=== PATIENT | male | born 1970 | race Two or more races ===

== ENCOUNTER 2025-05-18 15:54 | Emergency (ER) | payer MEDICAID ==
[~2025-05-18] VITALS: Ht 175.3 cm; Wt 85.0 kg
[2025-05-18 15:58] VITALS: O2SAT 98
[2025-05-18] MEDS ORDERED: LISI20TA31 MT (16:26)
[2025-05-18] MEDS ORDERED: HUM100IN SQ (16:26)
[2025-05-18 16:37] LABS: BASOPHILS % 0.3 % (0.0-2.0); EOSINOPHILS % 0.6 % (0.0-5.0); HEMATOCRIT. 43.7 % (42.0-52.0); HEMOGLOBIN. 14.3 g/dL (14.0-18.0); LYMPHOCYTES % 17.2 % (20.0-50.0); MEAN PLATELET VOLUME 8.3 fl (7.4-10.4); MONOCYTES % 7.6 % (2.0-8.0); NEUTROPHILS % 74.3 % (40.0-76.0); PLATELET 217 x1000/uL (130-400); RED BLOOD CELL COUNT 5.13 mill/uL (4.7-6.1); RED CELL DISTRIBUTION WIDTH 13.8 % (11.6-14.6)
[2025-05-18 16:48] LABS: CREATININE 1.5 mg/dL (0.6-1.3)
[2025-05-18 16:49] LABS: UREA NITROGEN BLOOD 16.0 mg/dL (9-23)
[2025-05-18] MEDS: LISINOPRIL 20MG TABLET PO ONE (16:59)
[2025-05-18 17:01] VITALS: BP 180/96; PULSE 86; RESP 18; TEMP 36.7; O2SAT 98
[2025-05-18] MEDS: SODIUM CHLORIDE 0.9% 1,000 ML IV ONE (17:01)
== END 2025-05-18 17:04 | disposition home or self-care (01) ==
LOC: ER 15:54
DX: I10 Essential (primary) hypertension (principal); E78.00 Pure hypercholesterolemia, unspecified; E11.9 Type 2 diabetes mellitus without complications; Z79.899 Other long term (current) drug therapy; Z76.0 Encounter for issue of repeat prescription
CPT/HCPCS: 99283; 80048; 82962; 85025; 36415; J7030